=== PATIENT | male | born 1975 | race Caucasian/White ===

== ENCOUNTER 2020-12-03 11:15 | Emergency (ER) | payer BC ==
--- NOTE | 2020-12-03 11:29 | EDM.PDOC ---
ED HPI GENERAL MEDICAL PROBLEM - General Stated Complaint: TOOTHPAIN Time Seen by Provider: 12/03/20 11:16 Source of Information: Reports: Patient History Limitations: Reports: No Limitations - History of Present Illness INITIAL COMMENTS - FREE TEXT/NARRATIVE: HISTORY AND PHYSICAL: History of present illness: Patient is a 45-year-old male who presents to the emergency room with complaints of right upper posterior dental pain since Friday. He has been trying Orajel, Tylenol and ibuprofen over the counter without any relief. States he attempted to get into the dentist, since its the he was unsuccessful. Patient denies any fever, chills, headache, change in vision, syncope or near syncope. Denies any chest pain, back pain, shortness of breath or cough. Denies any abdominal pain, nausea, vomiting, diarrhea, constipation or dysuria. Has not noted any blood in urine or stool. Patient has been eating and drinking appropriately. Review of systems: As per history of present illness and below otherwise all systems reviewed and negative. Past medical history: As per history of present illness and as reviewed below otherwise noncontributory. Surgical history: As per history of present illness and as reviewed below otherwise noncontributory. Social history: See social history for further information Family history: As per history of present illness and as reviewed below otherwise noncontributory. Physical exam: General: Well developed and well nourished 45-year-old male. Alert and orientated x 3. Nontoxic in appearance and in no acute distress. Vital signs are stable and have been reviewed by me. Nursing notes were reviewed. HEENT: Atraumatic, normocephalic, pupils equal and reactive bilaterally, negative for conjunctival pallor or scleral icterus, mucous membranes moist, missing tooth at #3 with erythema from 2-4 and tenderness along the gumline. TMs normal bilaterally, throat clear, neck supple, nontender, trachea midline. No drooling or trismus noted. No meningeal signs. No hot potato voice noted. Lungs: Clear to auscultation bilaterally. No wheezes, rales, or rhonchi. Chest nontender. Normal work of breathing, no accessory muscles used. Heart: S1S2, regular rate and rhythm without overt murmur, gallops, or rubs. No JVD. No peripheral edema Abdomen: Soft, nondistended, nontender. Skin: Intact, warm, dry. No lesions or rashes noted. Hematologic: No petechiae or purpra. Mucosa appropriate color and normal nail bed color and refill. Extremities: Atraumatic, moves all extremities per self without difficulty or deficits, negative for cords or calf pain. Neurovascular unremarkable. Neuro: Awake, alert, oriented. Cranial nerves II through XII unremarkable. Cerebellum unremarkable. Motor and sensory unremarkable throughout. Exam nonfocal. Psychiatric: Mood and affect are appropriate. Normal thought process. Answering questions appropriately. Notes: *This patient was seen and evaluated during the 2019 SARS-CoV-2 novel coronavirus pandemic period. Community viral transmission is ongoing at time of this encounter and the emergency department is operating under pandemic response procedures. Patient does appear that he has an abscess at #4 with erythema extending back to #2. We did discuss following up with a dentist on Friday which he is agreeable to. I have talked with the patient about today's findings, in addition to providing specific details for plan of care. Reassessment at the time of disposition demonstrates that the patient is in no acute distress. The patient is stable for discharge, counseling was provided and we discussed in great detail signs and symptoms that would prompt them to return to the Emergency Department. Medication, follow up and supportive care measures were reviewed and discussed. Voices understanding and is agreeable to plan of care. Denies any further questions or concerns at this time. Diagnostics: None Therapeutics: Augmentin, [place], Dental Balls Prescription: Augmentin, [place] Impression: Dental Abscess Plan: 1. You were evaluated today on an emergent basis. Please take the medication as directed. Follow-up with the dentist as we discussed. 2. You can alternate Tylenol and ibuprofen as needed for pain and fever management. 3. If your symptoms should worsen, new symptoms develop or any of the signs and symptoms we discussed should arise please return to the emergency room or call 911 (if needed). Definitive disposition and diagnosis as appropriate pending reevaluation and review of above. - Related Data Allergies Allergy/AdvReac Type Severity Reaction Status Date / Time No Allergy Information Allergy Sneezing Verified 12/03/20 11:31 Available Home Meds: Home Meds . [No Known Home Meds] 10/27/13 [History] Past Medical History - Past Health History Medical/Surgical History: Denies Medical/Surgical History ED ROS ENT - Review of Systems Review Of Systems: Comprehensive ROS is negative, except as noted in HPI. ED EXAM, ENT - Physical Exam Exam: See Below (See dictation) Course - Vital Signs Last Recorded V/S: Last Vital Signs Temp 96.9 F 12/03/20 11:31 Pulse 64 12/03/20 11:31 Resp 17 12/03/20 11:31 BP 143/92 H 12/03/20 11:31 Pulse Ox 95 12/03/20 11:31 Departure - Departure Time of Disposition: 11:37 Disposition: Home, Self-Care 01 Clinical Impression: Dental abscess - Discharge Information Instructions: Dental Abscess Additional Instructions: The following information is given to patients seen in the emergency department who are being discharged to home. This information is to outline your options for follow-up care. We provide all patients seen in our emergency department with a follow-up referral. The need for follow-up, as well as the timing and circumstances, are variable depending upon the specifics of your emergency department visit. If you don't have a primary care physician on staff, we will provide you with a referral. We always advise you to contact your personal physician following an emergency department visit to inform them of the circumstance of the visit and for follow-up with them and/or the need for any referrals to a consulting specialist. The emergency department will also refer you to a specialist when appropriate. This referral assures that you have the opportunity for follow-up care with a specialist. All of these measure are taken in an effort to provide you with optimal care, which includes your follow-up. Under all circumstances we always encourage you to contact your private physician who remains a resource for coordinating your care. When calling for follow-up care, please make the office aware that this follow-up is from your recent emergency room visit. If for any reason you are refused follow-up, please contact the [facility] Emergency Department at and asked to speak to the emergency department charge nurse. [facility] [address] [place] [id number] [address] Thank you for choosing the [facility] emergency department in [place] for your medical needs today. It was a pleasure caring for you. Today you were seen in the emergency department for Dental Abscess. 1. You were evaluated today on an emergent basis. Please take the medication as directed. Follow-up with the dentist as we discussed. 2. You can alternate Tylenol and ibuprofen as needed for pain and fever management. 3. If your symptoms should worsen, new symptoms develop or any of the signs and symptoms we discussed should arise please return to the emergency room or call 911 (if needed). Sepsis Event Note (ED) - Focused Exam Vital Signs: Vital Signs Temp Pulse Resp BP Pulse Ox 12/03/20 11:31 96.9 F 64 17 143/92 H 95
[2020-12-03] MEDS ORDERED: Lidocaine 2% Viscous Solution 15 ML Cup PO ONE (11:39)
[2020-12-03] MEDS ORDERED: Benzocaine 20% Topical Spray UD MUCMEM ONE (11:39)
[2020-12-03] MEDS ORDERED: Acetaminophen/HYDROcodone 325-10 MG Tab PO ONE (11:39)
[2020-12-03] MEDS ORDERED: Acetaminophen/HYDROcodone 325-5 MG Tab PO ONE (11:39)
[2020-12-03] MEDS ORDERED: Amoxicillin/Clavulanate K 875-125 MG Tab PO ONE (11:45)
== END 2020-12-03 12:00 | disposition home or self-care (01) ==
LOC: MW.ED 11:15
DX: K04.7 Periapical abscess without sinus (principal)
CPT/HCPCS: 99282; A9270

== ENCOUNTER 2024-07-12 10:50 | Emergency (ER) | payer BC ==
[2024-07-12] MEDS ORDERED: Naloxone 0.4 MG/ML SDV IVPUSH PRN ×2 (11:52→13:01)
[2024-07-12] MEDS: Ketorolac 30 MG/ML SDV IM ONE (12:07)
[2024-07-12] MEDS: HYDROmorphone 0.5 MG/0.5 ML Syringe IM ONE (12:08)
[2024-07-12] MEDS: methylPREDNISolone Sodium Succinate 40 MG/1 ML SDV IM ONE ×2 (12:09→13:09)
[2024-07-12] MEDS: Baclofen 10 MG Tab PO ONE (12:11)
[2024-07-12] MEDS: fentaNYL 50 MCG/ML SDV IM ONE (13:08)
[2024-07-12] MEDS: Cyclobenzaprine 10 MG Tab PO ONE (14:12)
== END 2024-07-12 15:34 | disposition home or self-care (01) ==
LOC: MW.ED 10:50
DX: S33.5XXA Sprain of ligaments of lumbar spine, initial encounter (principal); F17.210 Nicotine dependence, cigarettes, uncomplicated; X58.XXXA Exposure to other specified factors, initial encounter; Y93.89 Activity, other specified
CPT/HCPCS: 72128; 72131; 96372; 99283; A9270; J1885; J2919; J3010; J3360

== ENCOUNTER 2024-07-22 21:52 | Emergency (ER) | payer BC ==
[2024-07-22] MEDS ORDERED: Naloxone 0.4 MG/ML SDV IVPUSH PRN (22:13)
[2024-07-22] MEDS: Orphenadrine 60 MG/2 ML Inj IM ONE (22:28)
[2024-07-22] MEDS: HYDROmorphone 1 MG/ML Syringe IM ONE (22:29)
== END 2024-07-22 22:54 | disposition home or self-care (01) ==
LOC: MW.ED 21:52
DX: M54.50 Low back pain, unspecified (principal); Z79.899 Other long term (current) drug therapy
CPT/HCPCS: 96372; 99283; J1171; J2360